=== PATIENT | male | born 1940 | race Caucasian/White ===

== ENCOUNTER 2017-05-01 12:45 | Emergency (ER) | payer MEDICARE, OTHER ==
[2017-05-01 13:11] LABS: BASOPHIL 0.2 % (0-2); EOSINOPHIL 2.5 % (0-7); HCT 40.6 % (42.0-52.0); MCH 32.7 pg (25.0-31.0); MCHC 34.5 g/dL (32.0-36.0); MCV 94.9 fL (78.0-100.0); MONOCYTE 9.3 % (0-12); MPV 9.9 fL (6.0-9.5); PLT 164 K/uL (150-400); RBC 4.28 M/uL (4.70-6.00); WBC 8.8 K/uL (4.0-10.5)
[2017-05-01 13:17] LABS: PROTHROMBIN TIME 12.8 SECONDS (11.7-14.0); PTT 25.8 SECONDS (23.2-31.4)
[2017-05-01 13:25] LABS: ALBUMIN 3.9 g/dL (3.4-4.8); BILIRUBIN - TOTAL 0.3 mg/dL (0.1-1.0); GLOBULIN (CALCULATION) 2.4 g/dL (2.2-4.2); MAGNESIUM 1.85 mg/dL (1.40-2.10); POTASSIUM 4.7 mmol/L (3.5-5.1); TOTAL PROTEIN 6.3 g/dL (6.4-8.3)
[2017-05-01 13:28] LABS: MYOGLOBIN 66 ng/mL (26-65); PRO-BNP 268 pg/mL (0-450); TROPONIN T < 0.010 ng/mL
[2017-05-01 13:35] LABS: CKMB 6.65 ng/mL (0.97-4.94)
[2017-05-01 14:09] LABS: BILIRUBIN NEGATIVE (NEGATIVE); BLOOD NEGATIVE Ery/uL (NEGATIVE); CLARITY CLEAR (CLEAR); COLOR YELLOW (YELLOW); GLUCOSE (U) 2+ mg/dL (NORMAL); KETONE (U) NEGATIVE (NEGATIVE); LEUKOCYTES NEGATIVE Leu/uL (NEGATIVE); NITRITE NEGATIVE (NEGATIVE); PROTEIN NEGATIVE (NEGATIVE); UROBILINOGEN 0.2 mg/dL (0.2-1.0); pH 6.5 (5.0-9.0)
== END 2017-05-01 16:32 | disposition home or self-care (01) ==
LOC: FER 12:45
PROVIDERS: Emergency Medicine
DX: R07.9 Chest pain, unspecified (principal); S22.080A Wedge compression fracture of T11-T12 vertebra, initial encounter for closed fracture; E11.40 Type 2 diabetes mellitus with diabetic neuropathy, unspecified; E78.5 Hyperlipidemia, unspecified; I10 Essential (primary) hypertension; G20 Parkinson's disease; G40.909 Epilepsy, unspecified, not intractable, without status epilepticus; Z82.49 Family history of ischemic heart disease and other diseases of the circulatory system; Z89.429 Acquired absence of other toe(s), unspecified side; Z79.84 Long term (current) use of oral hypoglycemic drugs; Z79.4 Long term (current) use of insulin; Z79.899 Other long term (current) drug therapy; W10.9XXA Fall (on) (from) unspecified stairs and steps, initial encounter
CPT/HCPCS: 36415; 71010; 72110; 80053; 81003; 82550; 82553; 83735; 83874; 83880; 84484; 85025; 85610; 85730; 93005